=== PATIENT | female | born 1980 | race Caucasian/White ===

== ENCOUNTER 2022-11-18 09:27 | Observation (INO) | payer OTHER ==
[2022-11-13 14:17] VITALS: BMI 38.9
[2022-11-14 14:36] LABS: Hemoglobin 15.9 g/dL (12.0-15.5); Mean Corpuscular HGB CONC 35.2 g/dL (32.0-36.0); Mean Corpuscular Hemoglobin 29.6 pg (27.0-33.0); Mean Corpuscular Volume 84.2 fl (81.6-98.3); Mean Platelet Volume 9.8 fl (7.4-10.4); Platelet Count 273 10x3/uL (150-450); RBC Distribution Width 12.9 % (11.5-14.5); Red Blood Cell (RBC) Count 5.37 10x6/uL (3.90-5.03); White Blood Cell (WBC) Count 8.3 10x3/uL (3.5-10.5)
[2022-11-14 14:40] LABS: BHCG - Serum Negative (NEGATIVE); Pregs Control Background? CLEAR/WHITE (CLR/WHITE); Pregs Control Bar Appear? YES (CONTROL BAR)
[2022-11-18] MEDS ORDERED: Gabapentin 300 MG CAP ONE (10:02)
[2022-11-18] MEDS ORDERED: Famotidine/PF 20 mg/2ml Vial ONE (10:03)
[2022-11-18] MEDS ORDERED: CeleCOXIB 100 MG CAP ONE (10:03)
[2022-11-18] MEDS ORDERED: Midazolam HCl 2 mg/2 ml Vial ONE ×2 (11:12→11:13)
[2022-11-18] MEDS ORDERED: Fentanyl 100 MCG/2 ML VIAL ONE ×2 (11:13→12:34)
[2022-11-18] MEDS ORDERED: Ondansetron PF 4 MG/2 ML Vial ONE (11:13)
[2022-11-18] MEDS ORDERED: PROPOFOL 20 ML ONE (11:13)
[2022-11-18] MEDS ORDERED: Lidocaine 1% w/Epinephrine 1:200K 30 ML VIAL ONE (11:13)
[2022-11-18] MEDS ORDERED: Rocuronium Bromide 10 MG/ML (10ML VIAL) ONE (11:13)
[2022-11-18] MEDS ORDERED: Dexamethasone 20 MG/5 ML VIAL ONE (11:13)
[2022-11-18] MEDS ORDERED: Glycopyrrolate 0.2 MG/ML 5 ML SYRINGE ONE (11:14)
[2022-11-18] MEDS ORDERED: CEFAZOLIN 2 GM VIAL ONE (11:23)
[2022-11-18 11:56] LABS: SARS-CoV-2 NAA Rapid Test Not Detected (NotDetected)
[2022-11-18] MEDS ORDERED: Lidocaine 1% (PF) 30 ML VIAL ONE (12:06)
[2022-11-18] MEDS ORDERED: EPINEPHrine 1 MG/ML AMP ONE (12:06)
[2022-11-18] MEDS ORDERED: Morphine 4 MG/ML VIAL SLOW IVP PRN ×2 (12:18→12:44)
[2022-11-18] MEDS ORDERED: Ondansetron PF 4 MG/2 ML Vial IVP PRN (12:18)
[2022-11-18] MEDS ORDERED: Zolpidem Tartrate 5 MG TAB PO PRN (12:18)
[2022-11-18] MEDS ORDERED: Simethicone Chewable 80 MG TAB PO PRN (12:18)
[2022-11-18] MEDS: HYDROcodone/Acetaminophen 10/325 mg Tablet PO PRN ×3 (14:53→20:15)
[2022-11-18] MEDS: Lactated Ringer's 1,000 ML IV SCH ×2 (16:27→16:42)
[2022-11-18] MEDS: busPIRone HCl 15 MG TAB PO SCH (20:13)
[2022-11-18] MEDS: Gabapentin 300 MG CAP PO SCH (20:14)
[2022-11-18] MEDS ORDERED: traZODone HCl 150 MG TAB PO SCH (21:00)
[2022-11-18] MEDS ORDERED: Atenolol 25 MG TAB PO SCH (21:00)
[2022-11-19] MEDS: HYDROcodone/Acetaminophen 10/325 mg Tablet PO PRN ×2 (02:03→08:27)
[2022-11-19 03:50] LABS: Hemoglobin 14.6 g/dL (12.0-15.5); Mean Corpuscular HGB CONC 36.4 g/dL (32.0-36.0); Mean Corpuscular Hemoglobin 29.8 pg (27.0-33.0); Mean Corpuscular Volume 81.8 fl (81.6-98.3); Mean Platelet Volume 9.5 fl (7.4-10.4); Platelet Count 271 10x3/uL (150-450); RBC Distribution Width 12.5 % (11.5-14.5); White Blood Cell (WBC) Count 14.5 10x3/uL (3.5-10.5)
[2022-11-19 07:37] VITALS: BP 103/48; TEMP 98.1
[2022-11-19] MEDS: Gabapentin 300 MG CAP PO SCH (08:02)
[2022-11-19] MEDS: busPIRone HCl 15 MG TAB PO SCH (08:03)
[2022-11-19] MEDS ORDERED: ATOMOXETINE HCL 100 MG PO SCH (09:00)
[2022-11-19] MEDS ORDERED: Levothyroxine Sodium 100 MCG TAB PO SCH (09:00)
[2022-11-19] MEDS ORDERED: LURASIDONE HCL 80 MG PO SCH (09:00)
== END 2022-11-19 11:10 | disposition home or self-care (01) ==
LOC: CSHSDC 09:27 → CSHPP 13:30
PROVIDERS: ADMIT Obstetrics & Gynecology; ATTEND Obstetrics & Gynecology
PROC: 0JQC0ZZ Repair Pelvic Region Subcutaneous Tissue and Fascia, Open Approach (ICD-10-PCS; principal; 2022-11-18)
DX: N81.6 Rectocele (principal); J45.909 Unspecified asthma, uncomplicated; E03.9 Hypothyroidism, unspecified; I10 Essential (primary) hypertension; F41.9 Anxiety disorder, unspecified; E66.01 Morbid (severe) obesity due to excess calories; Z68.41 Body mass index [BMI] 40.0-44.9, adult; Z79.899 Other long term (current) drug therapy; Z88.2 Allergy status to sulfonamides; Z88.1 Allergy status to other antibiotic agents; Z90.49 Acquired absence of other specified parts of digestive tract
CPT/HCPCS: 84703; 85027; 86850; 86900; 86901; J0171; J1100; J2001; J2250; J2405; J2704; J3010; S0028; U0002

== ENCOUNTER 2023-03-10 10:04 | Outpatient (CLI) | payer OTHER | END 2023-03-10 10:05 | disposition home or self-care (01) | LOC: CSHMAMMO 10:04 | PROVIDERS: ATTEND Obstetrics & Gynecology | DX: Z12.31 Encounter for screening mammogram for malignant neoplasm of breast (principal) | CPT/HCPCS: 77063; 77067 ==

== ENCOUNTER 2025-07-25 08:17 | Outpatient (CLI) | payer OTHER | END 2025-07-25 08:18 | disposition home or self-care (01) | LOC: CSHMAMMO 08:17 | PROVIDERS: ATTEND Obstetrics & Gynecology | DX: N64.89 Other specified disorders of breast (principal) | CPT/HCPCS: 77066; G0279 ==